=== PATIENT | female | born 1975 | race Caucasian/White ===

== ENCOUNTER 2016-04-11 12:08 | Inpatient (IN) | payer OTHER ==
--- NOTE | 2016-04-11 12:18 | Emergency Department Report ---
ED Neuro Deficit HPI - General Stated Complaint: CVA Time Seen by Provider: 04/11/16 12:14 Source: patient, EMS, old records reviewed (no [facility] record for review) Mode of arrival: Stretcher Limitations: No Limitations - History of Present Illness Initial Comments: 40-year-old female with a past medical history of obesity, hypertension, TIA and migraine presents to the hospital with complaints of sudden onset left sided weakness, numbness, facial droop, and slurred speech that started approximately 11 AM. Patient was at work at a medical office during symptom onset. Symptoms are constant without aggravating or alleviating factors. Patient states she woke up this morning with a left-sided headache that his friend aching and constant. Patient took her blood pressure pill and ibuprofen this morning and reports headache is mild at this time. Positive associated nausea. Patient does have a history of migraines but states she typically has more photophobia with her migraine episodes. She denies a history of complex migraines but did have a TIA 2-3 years ago causing left-sided weakness. Patient reports she did have a headache at that time and made a full recovery without any residual neural deficit. She does not currently take aspirin, Plavix, or an anticoagulation. 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 - Related Data Allergies/Adverse Reactions: Allergies Allergy/AdvReac Type Severity Reaction Status Date / Time doxycycline Allergy Unknown Verified 04/11/16 12:13 ED Review of Systems ROS: Stated complaint: CVA Other details as noted in HPI Comment: All other systems reviewed and negative Other: Constitutional: No fevers chills Eyes: No eye pain visual changes ENT: No ear pain or throat pain Neck: Denies pain Respiratory: Denies cough wheezing shortness of breath Cardiovascular: Denies chest pain, palpitations, syncope GI: Denies abdominal pain, vomiting, diarrhea Musculoskeletal: Denies back pain Skin: Denies rash, lesions, erythema Neurologic: as per hpi Psychiatric: Denies suicidal ideation, hallucinations ED Past Medical Hx - Past Medical History Previous Medical History?: Yes Hx Hypertension: Yes Hx CVA: Yes - Surgical History Past Surgical History?: No - Social History Smoking Status: Never Smoker ED Neuro Physical Exam - General Limitations: No Limitations Suspected Stroke: Yes - NIHSS Assessment Interval: Baseline 1a. Level of Consciousness: alert 1b. LOC Questions: answers correctly 1c. LOC Commands: performs tasks correctly 2. Best Gaze: normal 3. Visual: no visual loss 4. Facial Palsy: partial paralysis 5b. Motor Arm Right: no drift 5a. Motor Arm Left: drift 6a. Motor Leg Left: some gravity effort 6b. Motor Leg Right: no drift 7. Limb Ataxia: present 1 limb (left arm but likey due to weaknes) 8. Sensory: mild/moderate sensory loss 9. Best Language: no aphasia 10. Dysarthria: mild/moderate dysarthria 11. Extinction/Inattention: no abnormality Total Score: 8 Stroke Severity: Moderate Stroke - Other Other exam information: General: No limitations, patient is alert in no acute distress Head exam: Atraumatic, normocephalic Eyes exam: Normal appearance, pupils equal reactive to light, extraocular movements intact ENT: Moist mucous membrane, normal oropharynx Neck exam: Normal inspection, full range of motion, no meningismus nontender Respiratory exam: Clear to auscultation bilateral, no wheezes, rales, crackles Cardiovascular: Normal rate and rhythm Abdomen: Soft, nondistended, and nontender, with normal bowel sounds, no rebound, or guarding Extremity: Full range of motion normal inspection no deformity Back: Normal Inspection, full range of motion, no tenderness Neurologic: Alert, oriented x3, see NIH stroke scale Psychiatric: normal affect, normal mood Skin: Warm, dry, intact ED Course Vital Signs 04/11/16 04/11/16 12:38 12:42 Pulse Rate 69 Respiratory 16 16 Rate Blood Pressure 153/82 [Right] O2 Sat by Pulse 100 100 Oximetry - Reevaluation(s) Reevaluation #1: 04/11/16 12:30 I was ordering TPA at this time when the nurse brought to my attention that patient now refuses TPA. Patient expresses her concern for bleeding. It was explained that there is a very small risk of bleeding and a large chance that her left-sided weakness can be permanent. Patient wants more time to be considered. - Consultations Consultation #1: 04/11/16 12:[address] Whipple at this time. I informed to the patient is a candidate for TPA but apprehensive about receiving the medication. She will evaluate patient within the next 5 minutes and rediscussed treatment options. Consultation #2: 04/11/16 13:05 Dr. Whipple interviewed patient and patient still declines TPA at this time. Patient will be admitted CT angiogram head and neck recommended and admission for stroke workup 04/11/16 13:05 - Lab Data Result diagrams: 04/11/16 12:10 04/11/16 12:10 Lab Results 04/11/16 04/11/16 04/11/16 Range/Units 12:10 12:10 12:10 WBC 5.6 (4.5-11.0) K/mm3 RBC 4.85 (3.65-5.03) M/mm3 Hgb 13.1 (10.1-14.3) gm/dl Hct 40.9 (30.3-42.9) % MCV 84 (79-97) fl MCH 27 L (28-32) pg MCHC 32 (30-34) % RDW 13.9 (13.2-15.2) % Plt Count 255 (140-440) K/mm3 Lymph % (Auto) 43.9 H (13.4-35.0) % [place] % (Auto) 10.3 H (0.0-7.3) % Eos % (Auto) 0.5 (0.0-4.3) % Baso % (Auto) 1.0 (0.0-1.8) % Lymph # 2.4 (1.2-5.4) K/mm3 [place] # 0.6 (0.0-0.8) K/mm3 Eos # 0.0 (0.0-0.4) K/mm3 Baso # 0.1 (0.0-0.1) K/mm3 Seg Neutrophils % 44.3 (40.0-70.0) % Seg Neutrophils # 2.5 (1.8-7.7) K/mm3 PT 13.5 (12.2-14.9) Sec. INR 1.04 (0.87-1.13) APTT 26.9 (24.2-36.6) Sec. Thrombin Time 17.1 (15.1-19.6) Sec. Sodium 138 (137-145) mmol/L Potassium 3.4 L (3.6-5.0) mmol/L Chloride 99.0 (98-107) mmol/L Carbon Dioxide 26 (22-30) mmol/L Anion Gap 16 mmol/L BUN 9 (7-17) mg/dL Creatinine 0.9 (0.7-1.2) mg/dL Estimated GFR > 60 ml/min BUN/Creatinine Ratio 10.00 % Glucose 85 (65-100) mg/dL Calcium 8.9 (8.4-10.2) mg/dL - EKG Data -: EKG Interpreted by Me (nsr 68, lvh, nonspecivit t abl) - Radiology Data Radiology results: report reviewed - Medical Decision Making Aspirin given since patient continues to refuse tPA. She will beadmitted to hospital for the stroke workup and evaluation. However, complex migraine is still considered in the differential. CTA head and neck unremarkable therefore pt does not qualify for thrombectomy and transfer to [place] - Differential Diagnosis Tia, cva, complex migraine, mass, ICh - Thrombolytic Inclusion/Exclusion Thrombolytic Inclusion Criteria: Ischemic Stroke Onset< 3h, NIH Stroke Scale Deficit, Negative CT Scan for ICH, Age 18 or Older, Glucose of 50-400mg/dl Critical Care Time: No Critical care attestation.: If time is entered above; I have spent that time in minutes in the direct care of this critically ill patient, excluding procedure time. ED Disposition Clinical Impression: Acute CVA (cerebrovascular accident), Left-sided weakness, Slurred speech, HTN (hypertension), Headache Disposition: OP ADMITTED IP TO THIS HOSP Is pt being admited?: Yes Condition: Stable Time of Disposition: 13:06 (Dr Castellanos/Hosp)
[2016-04-11 12:22] LABS: Eosinophils % (Auto) 0.5 % (0.0-4.3); Hematocrit 40.9 % (30.3-42.9); Hemoglobin 13.1 gm/dl (10.1-14.3); Mean Corpuscular HGB Conc 32 % (30-34); Mean Corpuscular Hemoglobin 27 pg (28-32); Mean Corpuscular Volume 84 fl (79-97); Platelet Count 255 K/mm3 (140-440); Red Blood Count 4.85 M/mm3 (3.65-5.03); Red Cell Distribution Width 13.9 % (13.2-15.2); White Blood Count 5.6 K/mm3 (4.5-11.0)
--- NOTE | 2016-04-11 12:29 | Cat Scan Report ---
CT HEAD WITHOUT CONTRAST: HISTORY: CVA. Serial contiguous axial images were obtained through the cranium. Intravenous contrast material was not administered. The ventricles are normal in size and appearance. There is no mass effect or midline shift. No areas of abnormally increased or decreased attenuation are seen. No mass lesion is seen. The mastoid air cells and visualized portions of the sinuses are normal. IMPRESSION: Cranial CT scan within normal limits. These findings were discussed with Dr. Pitts in the emergency department at 1223 hrs.
[2016-04-11] MEDS ORDERED: ACTIVASE ONE (12:31)
[2016-04-11] MEDS ORDERED: NACL 0.9% 50 ML ONE (12:32)
[2016-04-11 12:33] LABS: Anion Gap 16 mmol/L; Blood Urea Nitrogen 9 mg/dL (7-17); Calcium 8.9 mg/dL (8.4-10.2); Carbon Dioxide 26 mmol/L (22-30); Glucose 85 mg/dL (65-100); Potassium 3.4 mmol/L (3.6-5.0); Sodium 138 mmol/L (137-145)
[2016-04-11 12:45] LABS: INR 1.04 (0.87-1.13)
[2016-04-11 12:46] LABS: Partial Thromboplastin Time 26.9 Sec. (24.2-36.6)
[2016-04-11] MEDS ORDERED: NACL ONE (13:06)
[2016-04-11] MEDS ORDERED: ASPIRIN PO ONE (13:07)
--- NOTE | 2016-04-11 13:07 | Admit Criteria Form ---
Admission Criteria Documentation: STROKE: ISCHEMIC Clinical Indications for Admission to Inpatient Care (Place 'X' for any and all applicable criteria): Admission is indicated for ANY ONE of the following(1)(2)(3)(4): [X]I. Acute stroke Extended stay beyond goal length of stay may be needed for(1)(2) [ ]a) Major deficit or clinical deterioration [ ]b) Hospital-acquired infection (eg, urinary tract infection, pneumonia) [ ]c) Embolic cause of stroke [ ]d) Venous thromboembolism(9) [ ]e) Seizures [ ]f) Bleeding (eg, cerebral) [ ]g) Increased intracranial pressure [ ]h) Comorbidities [ ]i) Surgical intervention The original [facility] content created by [employer] has been revised. The portions of the content which have been revised are identified through the use of italic text or in bold, and [facility] has neither reviewed nor approved the modified material. All other unmodified content is copyright [facility]. Please see references footnoted in the original [facility] edition 2016 Admission Criteria Met: Yes
--- NOTE | 2016-04-11 13:58 | Cat Scan Report ---
CTA NECK: HISTORY: Stroke. TECHNIQUE: Helical CT following IV contrast. Sagittal and coronal reformatted images. 3D volume rendering technique. Stenosis was calculated using NASCET criteria. FINDINGS: The visualized aortic arch, innominate artery and proximal bilateral subclavian arteries are widely patent. Both carotid systems are patent throughout. No evidence for stenosis, occlusion, dissection or aneurysmal dilatation. The cervical vertebral arteries are patent as well. IMPRESSION: Unremarkable CTA of the neck.
--- NOTE | 2016-04-11 13:59 | Cat Scan Report ---
CTA HEAD: HISTORY: Stroke. TECHNIQUE: Helical CT following IV contrast. Rotational MIP images.. FINDINGS: The arterial structures of the anterior and posterior circulations are patent throughout. No evidence for stenosis, occlusion or aneurysm. IMPRESSION: Unremarkable CTA head.
[2016-04-11] MEDS ORDERED: ZOFRAN IV ONE (15:09)
[2016-04-11] MEDS ORDERED: MORPHINE IV ONE (15:09)
[2016-04-11] MEDS ORDERED: ASPIRIN ONE (15:14)
--- NOTE | 2016-04-12 | Event Note ---
Date: 04/11/16 See H/p in reports Acute CVA
[2016-04-12] MEDS ORDERED: SODIUM CHLORIDE FLUSH SYRINGE 10 ML IV PRN (00:06)
[2016-04-12] MEDS ORDERED: PROTONIX PO SCH (10:00)
[2016-04-12] MEDS ORDERED: TOPROL XL PO SCH (10:00)
[2016-04-12] MEDS ORDERED: FIORICET PO PRN (12:58)
--- NOTE | 2016-04-12 13:04 | Magnetic Resonance Report ---
MRA HEAD WITHOUT CONTRAST HISTORY: Stroke. [id number] imaging with MIP reformations of [place] is submitted. The arteries appear widely patent and free of hemodynamically significant stenosis or aneurysm dilatation. Both vertebral arteries are identified appearing patent as well. IMPRESSION: Unremarkable MRA head.
--- NOTE | 2016-04-12 13:09 | Magnetic Resonance Report ---
MRI of brain: History: Stroke. Technique: Multiplanar, multisequence images were obtained without contrast injection. Findings: No evidence of restricted diffusion. Ventricles are normal in size and midline in location. No evidence of acute ischemia, hemorrhage or mass. No extra-axial fluid collection. Normal brainstem and cerebellum. Retention cyst or polyp measuring 1 cm in diameter medial wall of right maxillary sinus. Impression: No acute intracranial abnormality. Retention cyst or polyp right maxillary sinus.
[2016-04-12 13:48] VITALS: BP 131/91
--- NOTE | 2016-04-12 15:59 | Event Note ---
Date: 04/12/16 Pt d/c'd prior to consult being completed
--- NOTE | 2016-04-12 20:55 | History and Physical Report ---
CHIEF COMPLAINT: Sudden onset of left-sided weakness, facial droop, and slurred speech from 11 a.m. HISTORY OF PRESENT ILLNESS: A 40-year-old female with past medical history of obesity, hypertension, migraine, and TIAs, presents to the hospital with sudden onset of left-sided weakness, numbness, facial droop, and slurred speech. The patient was worked in the medical office during symptoms onset. The patient took her blood pressure medicines. The patient had a migraine which is associated with photophobia and migraine episodes in the past, has a history of complex migraines, but also has a TIA 2-3 years ago. The patient does not take aspirin, Plavix, or any anticoagulation. Had a history of Valentine palsy in the past. PAST MEDICAL HISTORY: Significant for hypertension, cerebrovascular accident. PAST SURGICAL HISTORY: None. SOCIAL HISTORY: Does not smoke. FAMILY HISTORY: Significant for hypertension. REVIEW OF SYSTEMS: CONSTITUTIONAL: No weight loss, no weight gain. HEENT: No sore throat. No postnasal drip. No facial palsy. CARDIOVASCULAR AND RESPIRATORY: No shortness of breath. No chest pain. No diaphoresis. No wheezing. GASTROINTESTINAL: No nausea, no vomiting, no diarrhea. MUSCULOSKELETAL: No joint pains. CENTRAL NERVOUS SYSTEM: No syncope. No seizures. Has weakness. SKIN: No rashes. A 14-point review of systems done, essentially negative. PHYSICAL EXAMINATION: GENERAL: Young female, cooperative during examination. VITAL SIGNS: Temperature is 98, pulse is , respirations are 16, blood pressure is 152/82, sats are 100%. HEENT: Unremarkable. Pupils equal and reactive. NECK: Supple, no lymphadenopathy, no thyromegaly. LUNGS: Clear to auscultation and percussion. Good air entry. CARDIOVASCULAR: S1, S2 heard. No gallop, no murmur, no rub. Apical impulse in left fifth intercostal space in midclavicular line. ABDOMEN: Soft and benign. No hepatosplenomegaly. No guarding, no rigidity. Hernial orifices are normal. EXTREMITIES: Good pedal pulses. No pedal edema. CENTRAL NERVOUS SYSTEM: Alert and oriented x 4. Left side 3/5 weakness in the left upper and left lower extremity, bordering on 4/5 power. SKIN: Normal. LABORATORY DATA: EKG shows normal sinus rhythm, heart rate of 68, LVH, nonspecific T-wave, no T-wave abnormalities. CT of the head was normal. EMERGENCY ROOM COURSE: The patient was given aspirin and patient continues to refuse TPA. The patient admitted to the hospital for a stroke workup. ASSESSMENT AND PLAN: 1. Acute cerebrovascular accident, stroke workup. Neuro consult requested. Physical therapy consult requested. 2. Hypertension, questionable. We will observe the blood pressure in the hospital and start on antihypertensives as necessary. 3. Deep venous thrombosis prophylaxis, Lovenox 40 mg subcutaneous daily. In summary, acute CVA and workup for CVA. Physical rehabilitation and Neurology consult requested. Stroke workup in the form of MRI, MRA, carotid duplex scan, and echocardiogram initiated. JOB# [id number] RAUL/GISSELLE
[2016-04-12] MEDS ORDERED: ZOCOR PO SCH (22:00)
--- NOTE | 2016-04-13 11:44 | Vascular Lab Report ---
CAROTID DUPLEX STUDY: RIGHT PSVEDV CCA PROX:[id number] CCA DIST:6715 ICA PROX:7312 ICA MID:8737 ICA DIST:9334 ECA: [id number] VERT: 55 17 LEFT PSVEDV CCA PROX:[id number] CCA DIST:7022 ICA PROX:5315 ICA MID:9337 ICA DIST:13342 ECA: 6812 VERT: 65 24 REASON FOR EXAM: Stroke. COMMENTS ON THE RIGHT: Doppler frequency analysis is consistent with 16 to 49 percent diameter reduction of the internal carotid artery. Minimal amount of plaque is seen. The common carotid artery is patent. The external carotid artery is patent. The vertebral artery has antegrade flow. COMMENTS ON THE LEFT: Doppler frequency analysis is consistent with 16 to 49 percent diameter reduction of the internal carotid artery. Minimal amount of plaque is seen. The common carotid artery is patent. The external carotid artery is patent. The vertebral artery has antegrade flow. IMPRESSION: Less than 50% diameter reduction in the internal carotid arteries bilaterally. Consider repeat carotid artery duplex in 12 months.
--- NOTE | 2016-04-15 08:21 | Query- General ---
Matteo Hernández____GREY Date:____04/15/16 Assistant Cook/CDS: Karlo / Cedric Phone#:__[phone] Exercise your independent professional judgment when responding to this query. Questions asked do not imply a particular answer is desired or expected. We greatly appreciate your clarification on this issue. Clinical Documentation States: 40 year old female was admitted on 04/11/16. The patient presented with sudden onset of left sided weakness, facial droop, and slurred speech from 11 a.m. The H&P states " acute cerebrovascular accident, stroke workup. Stroke workup in the form of MRI, MRA, carotid duplex scan, and echocardiogram initiated " Clinical Findings Show (include reference to source document): MRI report states " No acute intracranial abnormality. Retention cyst or polyp right maxillary sinus " Given the above clinical scenario can you please provide an appropriate diagnosis based on your knowledge of the patient: Please clarify the CVA status: PHYSICIAN RESPONSE: [ ] CVA ruled in [ x ] CVA ruled out [ ] Other (please specify) [ ] Clinically undeterminable [ ] Not applicable Present on Admission: [ ] Yes (Y) [ ] Clinically undeterminable (W) [ ]No(N) Please also document response in your Progress Notes and/or Discharge Summary and indicate if the condition was present on admission. JOVOND
== END 2016-04-12 15:45 | disposition home or self-care (01) | DRG 92 ==
LOC: ED 12:08 → 4A 13:08
PROVIDERS: ADMIT Internal Medicine; ATTEND Internal Medicine
DX: R29.810 Facial weakness (principal); Z68.41 Body mass index [BMI] 40.0-44.9, adult; I10 Essential (primary) hypertension; E66.9 Obesity, unspecified; G43.909 Migraine, unspecified, not intractable, without status migrainosus; Z88.8 Allergy status to other drugs, medicaments and biological substances; Z86.73 Personal history of transient ischemic attack (TIA), and cerebral infarction without residual deficits; Z82.49 Family history of ischemic heart disease and other diseases of the circulatory system
CPT/HCPCS: 36415; 70450; 70496; 70498; 70544; 70551; 80048; 85025; 85610; 85670; 85730; 93005; 93010; 93306; 93880; 96374; 96375; J2270; J2405; J2997; Q9967